=== PATIENT | male | born 1980 | race Caucasian/White ===

== ENCOUNTER 2018-05-19 14:20 | Emergency (ER) | payer OTHER ==
[2018-05-19 14:24] VITALS: BP 145/80
--- NOTE | 2018-05-19 14:46 | EDPHY ---
H & P Time Seen by Provider: 05/19/18 14:35 HPI/ROS: CHIEF COMPLAINT: Ear laceration HISTORY OF PRESENT ILLNESS: 37-year-old immunocompetent male with out-of-date tetanus states that 3 days ago he sustained a laceration to his right she ear helix. Did not seek medical attention until today when he noticed the extent of laceration when he cleaned off the blood. Today is Sunday. PHYSICAL EXAM (Prior to examination, patient consented to physical exam, hands were washed and my usual and customary physical exam procedures followed) 1) GENERAL: Well-developed, well-nourished, alert and oriented. Appears to be in no acute distress. 2) HEAD: Normocephalic 3) HEENT: sclera anicteric this. Right helix 2 cm laceration with the cartilage covered. Tissue epithelialization has been initiated. 4) LUNGS: Breathing comfortably. Smoking Status: Former smoker Constitutional: Initial Vital Signs Temperature (C) 36.2 C 05/19/18 14:22 Heart Rate 75 05/19/18 14:22 Respiratory Rate 16 05/19/18 14:22 Blood Pressure 145/80 H 05/19/18 14:22 O2 Sat (%) 98 05/19/18 14:22 O2 Delivery Mode Room Air Allergies/Adverse Reactions: No Known Allergies Allergy (Unverified 05/19/18 14:22) Home Medications: Medication Instructions Recorded Ciprofloxacin [Cipro] 500 mg PO BID #10 tab 05/19/18 MDM/Departure - MDM ED Course/Re-evaluation: This patient has a 3-day-old laceration to his right helix with cartilage covered. Today is Sunday. 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 I have recommend he see Dr. Nguyen or 1 of his colleagues tomorrow ( Sunday). At this time he has no evidence of auricular hematoma or infection however he has been informed that he is at risk of cellulitis, chondritis. I am starting the patient on cipro for infection prophylaxis. I saw this patient independently based on established practice protocols. Care of patient under supervision of secondary supervising physician Dr Delaney. - Depart Disposition: Home, Routine, Self-Care Clinical Impression: Laceration of ear Qualifiers: Encounter type: initial encounter Laterality: right Qualified Code(s): S01.311A - Laceration without foreign body of right ear, initial encounter Condition: Good Instructions: Laceration (ED) Additional Instructions: Follow-up with Dr. Jaun Nguyen tomorrow Prescriptions: Ciprofloxacin [Cipro] 500 mg PO BID #10 tab Referrals: Paulo Nguyen JR, MD [Medical Doctor] - 1 day without fail
== END 2018-05-19 15:07 | disposition home or self-care (01) ==
DX: S01.311A Laceration without foreign body of right ear, initial encounter (principal); W22.09XA Striking against other stationary object, initial encounter; Y93.55 Activity, bike riding